=== PATIENT | female | born 1970 ===

== ENCOUNTER → 2018-04-30 | Outpatient (CLI) | payer BC ==
--- NOTE | 2018-04-30 14:12 | Diagnostic Imaging Report ---
Indication: Abdominal pain mostly left-sided x2 weeks, nausea Technique: Reynolds-scale and duplex images of the upper abdomen were obtained Comparison: none Findings: Gallbladder is unremarkable, without stones, wall thickening, nor pericholecystic fluid. Sonographic Sorto's sign is negative. Common bile duct measures 5 mm in diameter. No intrahepatic biliary ductal dilatation. Liver demonstrates normal echogenicity, no focal abnormality. Portal vein and hepatic veins are patent. Pancreas is unremarkable. Spleen is borderline enlarged, measuring 13.1 cm long axis dimension. Left kidney measures 10.2 cm in length. Right kidney measures 9.6 cm length. Both kidneys demonstrate normal echogenicity. There is no hydronephrosis. There are bright echoes in the left renal sinus . Non-aneurysmal abdominal aorta . Impression: Borderline splenomegaly Negative for gallstones, dilated ducts, or other significant abnormality Findings discussed by phone with Dr. Gsos at the time of interpretation
--- NOTE | 2018-04-30 14:19 | Diagnostic Imaging Report ---
Indication: Pelvic pain, pelvic mass Technique: Transabdominal and transvaginal images Comparison: none Findings: Uterus measures 14.6 cm length by 9.5 cm AP. It demonstrates multiple fibroids. The largest of these measures 7.4 x 7.8 cm. There is an unusual appearing subserosal lesion which demonstrates multiple linear/tubular areas of fluid in the upper fundus. This measures approximately 5.4 x 7.3 cm. The endometrium measures 7 mm thick. The left ovary measures 3 cm in length. The right ovary cannot be visualized. Nabothian cysts are seen in the cervix. There is small amount of free cul-de-sac fluid Impression: Enlarged fibroid uterus. Unusual appearing subserosal lesion with linear/tubular areas of fluid. This most likely represents a degenerating fibroid. Consider MRI for better characterization Trace free cul-de-sac fluid, presumably physiologic Incidental finding cervical nabothian cysts Note nonvisualization of the right ovary Findings discussed by phone with Dr. Goss at the time of interpretation
== END | disposition home or self-care (01) ==
LOC: ULS 10:58
DX: R10.9 Unspecified abdominal pain (principal); D25.9 Leiomyoma of uterus, unspecified; N88.8 Other specified noninflammatory disorders of cervix uteri
CPT/HCPCS: 76700; 76830; 76856